=== PATIENT | male | born 1950 | race Caucasian/White ===

== ENCOUNTER 2018-05-24 17:31 | Emergency (ER) | payer MEDICARE, OTHER ==
[2018-05-24] MEDS ORDERED: NS 0.9% 1000 ML* 1,000 ML IV ONE (18:10)
[2018-05-24] MEDS ORDERED: Morphine VIAL* 4 MG/ML VIAL (1 ml vial) IV ONE (18:10)
[2018-05-24] MEDS ORDERED: Ondansetron INJ* 2 MG/ML VIAL IV ONE (18:10)
--- NOTE | 2018-05-24 18:14 | ED ---
GI/ HPI - HPI Summary HPI Summary: 67 year old male with history of cirrhosis and an umbilical hernia presents with severe abdominal pain for 1 day. Patient states his hernia causes him intermittent abdominal pain that is typically relieved with lying but today his pain was not relieved with rest and was more severe and worsening. States his pain is localized to his hernia and does not radiate anywhere. Patient has endorses mild nausea without vomiting and some diarrhea. Denies CP, SOB, back pain, headache, and numbness. Patient rates his pain as a 9/10. Patient has a history of cirrhosis and low platelet count. Describes the pain as "sharp." - History of Current Complaint Chief Complaint: EDAbdPain Time Seen by Provider: 05/24/18 17:47 Stated Complaint: ABD PAIN/NAUSEA Hx Obtained From: Patient, Family/Interactive Media Marketing Director Onset/Duration: Started Days Ago Timing: Intermittent Severity: Severe Current Severity: Severe Pain Intensity: 7 Location of Pain: Umbilical Pain Characteristics: Sharp Associated Signs and Symptoms: Positive: Nausea, Diarrhea, Chills Aggravating Factor(s): Straining, Movement, Sitting, Walking/Exertion Alleviating Factor(s): Nothing - Risk Factors GI Bleed Risk Factor(s): Liver Disease - Additional Pertinent History Primary Care Physician: ELSA - Allergy/Home Medications Allergies/Adverse Reactions: Allergies Allergy/AdvReac Type Severity Reaction Status Date / Time aspirin Allergy Unknown Verified 05/24/18 17:37 Reaction Details PMH/Surg Hx/FS Hx/Imm Hx Previously Healthy: No Endocrine/Hematology History: Denies: Hx Diabetes Cardiovascular History: Denies: Hx Hypertension GI History: Reports: Hx Cirrhosis - Recent diagnosis, Other GI Disorders - umbilical hernia Sensory History: Reports: Hx Hearing Problem - INAJA - Surgical History Surgery Procedure, Year, and Place: [place] Infectious Disease History: No Infectious Disease History: Denies: Traveled Outside the [place] in Last 30 Days - Family History Known Family History: Positive: Hypertension - Social History Alcohol Use: None Alcohol Amount: 1 glass of wine with dinner Substance Use Type: Reports: None Smoking Status (MU): Former Smoker Review of Systems Negative: Fever Negative: Chest Pain Negative: Shortness Of Breath Positive: Abdominal Pain, Diarrhea, Nausea. Negative: Vomiting Negative: dysuria All Other Systems Reviewed And Are Negative: Yes Physical Exam Triage Information Reviewed: Yes Vital Signs On Initial Exam: Initial Vitals Temp Pulse Resp BP Pulse Ox 97.3 F 85 16 133/71 100 05/24/18 17:33 05/24/18 17:33 05/24/18 17:33 05/24/18 17:33 05/24/18 17:33 Vital Signs Reviewed: Yes Appearance: Positive: Well-Appearing Skin: Positive: Warm, Dry Head/Face: Positive: Normal Head/Face Inspection Eyes: Positive: Normal, Conjunctiva Clear ENT: Positive: Pharynx normal Respiratory/Lung Sounds: Positive: Clear to Auscultation, Breath Sounds Present Cardiovascular: Positive: Normal, RRR Abdomen Description: Positive: Soft, Other: - umbilical hernia present, tenderness over umblicial hernia Bowel Sounds: Positive: Present Musculoskeletal: Positive: Normal Neurological: Positive: Normal Psychiatric: Positive: Normal Diagnostics - Vital Signs Vital Signs Temp Pulse Resp BP Pulse Ox 05/24/18 17:33 97.3 F 85 16 133/71 100 - Laboratory Result Diagrams: 05/24/18 18:32 05/24/18 18:32 Lab Statement: Any lab studies that have been ordered have been reviewed, and results considered in the medical decision making process. Re-Evaluation - Re-Evaluation First Eval Re-Evaluation Time: 19:19 Change: Improved Comment: umbilical hernia no longer present GIGU Course/Dx - Course Course Of Treatment: 67 year old male with a history of cirrhosis, low platelet count, and an umbilical hernia presents with worsening abdominal pain. Rates the pain as 9/10 and states it is localized to his hernia without radiation. States the pain is associated with nausea without vomiting. on exam has tenderness over umbilical hernia. in not red or warm to touch. Dr. Augustin saw the patient and was able to reduce the hernia. The patient experienced complete relief of symptoms. labs similiar to previous. Abdominal binder was placed and patient advised to keep it on. Patient discharged with instructions not to lift , to avoid strenuous activity, and to follow up with surgery. - Diagnoses Differential Diagnoses - Male: Gastroenteritis (Viral), Incarcerated Hernia, Urinary Tract Infection Provider Diagnoses: Hernia, umbilical Discharge - Sign-Out/Discharge Documenting (check all that apply): Patient Departure - Discharge Plan Condition: Good Disposition: HOME Patient Education Materials: Umbilical Hernia (ED) Referrals: Shalonda Winters MD [Primary Care Provider] - Dawson Augustin MD [Medical Doctor] - Additional Instructions: Do not lift heavy items. Avoid strenuous activity. Keep abdominal binder in place. Follow up with surgery. Return to ER with new or worsening symptoms. - Billing Disposition and Condition Condition: GOOD Disposition: Home
[2018-05-24 18:47] LABS: Hematocrit 30 % (42-52); Hemoglobin 10.8 g/dl (14.0-18.0); Mean Corpuscular HGB Conc 35 g/dl (31-36); Mean Corpuscular Hemoglobin 35 pg (27-31); Mean Corpuscular Volume 98 fL (80-94); Platelet Count 29 10^3/ul (150-450); Red Blood Count 3.11 10^6/ul (4.00-5.40); Red Cell Distribution Width 15 % (10.5-15); White Blood Count 8.1 10^3/ul (3.5-10.8)
[2018-05-24 18:54] LABS: INR 1.39 (0.77-1.02)
[2018-05-24 19:06] LABS: ABS Basophils 0 10^3/ul (0-0.2); ABS Eosinophils 0 10^3/ul (0-0.6); ABS Lymphocytes 0.3 10^3/ul (1.0-4.8); ABS Monocytes 0.3 10^3/ul (0-0.8); ABS Neutrophils 7.4 10^3/ul (1.5-7.7); ABS Nucleated RBC 0 10^3/ul; Eosinophil % 0.1 %; Lymphocyte % 4.2 %; Nucleated Red Blood Cells % 0
[2018-05-24 19:24] VITALS: BP 98/64
--- NOTE | 2018-05-25 03:04 | CONS ---
CC: Dr. Shalonda Winters; Dr. Bubba Field.* CONSULTATION REPORT: DATE OF CONSULT: 05/24/18 - EMERGENCY DEPT HISTORY OF PRESENT ILLNESS: The patient is known to me from previous office visits for umbilical hernia. We had considered umbilical hernia repair at the previous time; however, he was seen in consultation by Dr. Field who felt that his degree of cirrhosis created a high risk of morbidity and mortality with an elective surgery and therefore he has been managed nonoperatively. He comes to the emergency room now with lot of pain at the hernia site. He has not been throwing up. This has been just over a short period of time. PHYSICAL EXAM: On examination, he has approximately a 3-cm umbilical hernia, which is tender and not easily reducible. He is given some pain medicine and then with manipulation and modest amount of pushing, I am able to get it to pop right in and reduce the defect. It is just about a centimeter across. At that point, the hernia stays in nicely and he is feeling quite a bit better. I discussed it with him and with his , and again I will defer to the medical doctors as to whether he can tolerate surgery for his umbilical hernia. It is now reduced and I recommend he wear an abdominal binder and that may be able to keep it reduced and I am happy to see him back in the further should the need arise. [id number]/[facility] #: [id number]
== END 2018-05-24 20:05 | disposition home or self-care (01) ==
LOC: ED 17:31
DX: K42.9 Umbilical hernia without obstruction or gangrene (principal); Z87.891 Personal history of nicotine dependence
CPT/HCPCS: 36415; 80053; 82150; 83605; 83690; 85025; 85610; 85730; 86140; 96361; 96374; 96375; 99282; J2270; J2405

== ENCOUNTER 2020-10-06 17:17 | Inpatient (IN) ==
[2020-10-06 20:59] LABS: ABS Eosinophils 0.1 10^3/ul (0-0.6); ABS Lymphocytes 0.4 10^3/ul (1.0-4.8); ABS Monocytes 0.9 10^3/ul (0-0.8); ABS Neutrophils 7.6 10^3/ul (1.5-7.7); Eosinophil % 0.7 %; Hematocrit 23 % (42-52); Hemoglobin 8.5 g/dL (14.0-18.0); Lymphocyte % 4.1 %; Mean Corpuscular HGB Conc 36 g/dL (31-36); Mean Corpuscular Hemoglobin 36 pg (27-31); Mean Corpuscular Volume 98 fL (80-94); Mean Platelet Volume 7.7 fL (7.4-10.4); Platelet Count 75 10^3/uL (150-450); Red Blood Count 2.39 10^6 /uL (4.18-5.48); Red Cell Distribution Width 16 % (10-15)
[2020-10-06 21:03] LABS: INR 1.81 (0.82-1.09)
[2020-10-06 21:06] LABS: Albumin 2.9 g/dL (3.2-5.2); Albumin/Globulin Ratio 0.7 (1-3); C Reactive Protein 85.75 mg/L (<8.01); Calcium 8.4 mg/dL (8.6-10.3); EGFR African American 35.6 (>60); EGFR Non-African American 29.4 (>60); Globulin 4.4 g/dL (2-4); Magnesium 2.1 mg/dL (1.9-2.7); Potassium 4.2 mmol/L (3.5-5.0); Total Bilirubin 4.9 mg/dL (0.2-1.0); Total Protein 7.3 g/dL (6.4-8.9)
[2020-10-07] MEDS ORDERED: Dextrose 50% Syringe 50 ml 25 GM/50 ML SYRINGE IV PUSH PRN
[2020-10-07] MEDS ORDERED: cefTRIAXone 2 GM ADDV.VIAL 2 GM in NS 0.9% 100 ml BAG 100 ML IV ONE
[2020-10-07] MEDS: cefTRIAXone 2 GM ADDV.VIAL 2 GM in NS 0.9% 100 ml BAG 100 ML IV SCH (01:11)
[2020-10-07] MEDS: NS 0.9% 1000 ml BAG 1,000 ML IV SCH ×3 (01:11→21:47)
[2020-10-07 06:11] LABS: ABS Eosinophils 0.1 10^3/ul (0-0.6); ABS Lymphocytes 0.5 10^3/ul (1.0-4.8); ABS Monocytes 0.8 10^3/ul (0-0.8); ABS Neutrophils 5.5 10^3/ul (1.5-7.7); Eosinophil % 1.7 %; Hematocrit 20 % (42-52); Lymphocyte % 7.3 %; Mean Corpuscular HGB Conc 36 g/dL (31-36); Mean Corpuscular Hemoglobin 35 pg (27-31); Mean Corpuscular Volume 98 fL (80-94); Mean Platelet Volume 7.4 fL (7.4-10.4); Platelet Count 58 10^3/uL (150-450); Red Blood Count 1.98 10^6 /uL (4.18-5.48); Red Cell Distribution Width 16 % (10-15)
[2020-10-07 06:25] LABS: Albumin 2.5 g/dL (3.2-5.2); Calcium 7.8 mg/dL (8.6-10.3); Indirect Bilirubin 1.6 mg/dL (0.3-1.0); Potassium 4.7 mmol/L (3.5-5.0); Total Bilirubin 3.6 mg/dL (0.2-1.0)
[2020-10-07 06:31] LABS: Albumin/Globulin Ratio 0.7 (1-3); EGFR African American 38.4 (>60); EGFR Non-African American 31.7 (>60); Globulin 3.6 g/dL (2-4); Total Protein 6.1 g/dL (6.4-8.9)
[2020-10-08] MEDS: cefTRIAXone 2 GM ADDV.VIAL 2 GM in NS 0.9% 100 ml BAG 100 ML IV SCH (00:28)
[2020-10-08 06:19] LABS: ABS Basophils 0.1 10^3/ul (0-0.2); ABS Eosinophils 0.2 10^3/ul (0-0.6); ABS Lymphocytes 0.5 10^3/ul (1.0-4.8); ABS Neutrophils 9.4 10^3/ul (1.5-7.7); Eosinophil % 1.6 %; Hematocrit 20 % (42-52); Hemoglobin 7.1 g/dL (14.0-18.0); Lymphocyte % 4.1 %; Mean Corpuscular HGB Conc 35 g/dL (31-36); Mean Corpuscular Hemoglobin 35 pg (27-31); Mean Corpuscular Volume 98 fL (80-94); Mean Platelet Volume 7.4 fL (7.4-10.4); Platelet Count 101 10^3/uL (150-450); Red Blood Count 2.06 10^6 /uL (4.18-5.48); Red Cell Distribution Width 16 % (10-15); White Blood Count 11.1 10^3/uL (3.5-10.8)
[2020-10-08 06:31] LABS: Albumin 2.4 g/dL (3.2-5.2); Albumin/Globulin Ratio 0.7 (1-3); Calcium 7.7 mg/dL (8.6-10.3); EGFR African American 40.6 (>60); EGFR Non-African American 33.6 (>60); Globulin 3.6 g/dL (2-4); Magnesium 1.9 mg/dL (1.9-2.7); Potassium 4.3 mmol/L (3.5-5.0); Total Bilirubin 3.2 mg/dL (0.2-1.0)
[2020-10-08] MEDS: NS 0.9% 1000 ml BAG 1,000 ML IV SCH ×2 (08:19→22:57)
[2020-10-08 12:41] LABS: Body Fluid Source Peritonial Fluid
[2020-10-08 13:14] LABS: Body Fluid Mono 40 %; Body Fluid Other Cells 9
[2020-10-09] MEDS: cefTRIAXone 2 GM ADDV.VIAL 2 GM in NS 0.9% 100 ml BAG 100 ML IV SCH (00:35)
[2020-10-09 05:01] LABS: ABS Basophils 0.1 10^3/ul (0-0.2); ABS Lymphocytes 0.3 10^3/ul (1.0-4.8); ABS Neutrophils 11.9 10^3/ul (1.5-7.7); Eosinophil % 0.4 %; Hematocrit 23 % (42-52); Hemoglobin 7.8 g/dL (14.0-18.0); Lymphocyte % 2.6 %; Mean Corpuscular HGB Conc 35 g/dL (31-36); Mean Corpuscular Hemoglobin 34 pg (27-31); Mean Corpuscular Volume 99 fL (80-94); Mean Platelet Volume 6.8 fL (7.4-10.4); Nucleated Red Blood Cells % 0.1; Platelet Count 115 10^3/uL (150-450); Red Blood Count 2.29 10^6 /uL (4.18-5.48); Red Cell Distribution Width 16 % (10-15); White Blood Count 13.4 10^3/uL (3.5-10.8)
[2020-10-09 05:18] LABS: Albumin 2.4 g/dL (3.2-5.2); Albumin/Globulin Ratio 0.6 (1-3); EGFR African American 40.9 (>60); EGFR Non-African American 33.8 (>60); Globulin 3.9 g/dL (2-4); Potassium 3.8 mmol/L (3.5-5.0); Total Bilirubin 3.8 mg/dL (0.2-1.0); Total Protein 6.3 g/dL (6.4-8.9)
[2020-10-09] MEDS: Ondansetron 4 mg VIAL 2 MG/ML 2 ml VIAL IV PRN (08:03)
[2020-10-09] MEDS ORDERED: NS 0.9% 1000 ml BAG 1,000 ML IV SCH ×2 (09:40→12:49)
[2020-10-09] MEDS: Lactulose 30 ml UDC PO SCH (20:54)
[2020-10-10] MEDS: cefTRIAXone 2 GM ADDV.VIAL 2 GM in NS 0.9% 100 ml BAG 100 ML IV SCH (00:19)
[2020-10-10] MEDS: Lactulose 30 ml UDC PO SCH ×2 (09:32→20:34)
[2020-10-10 14:56] LABS: Albumin, BF 0.6 g/dL; Fluid Type, Albumin PERITONEAL
[2020-10-10] MEDS: Ondansetron 4 mg VIAL 2 MG/ML 2 ml VIAL IV PRN (17:01)
[2020-10-10] MEDS: NS 0.9% 1000 ml BAG 1,000 ML IV SCH (17:09)
[2020-10-11] MEDS: cefTRIAXone 2 GM ADDV.VIAL 2 GM in NS 0.9% 100 ml BAG 100 ML IV SCH (00:57)
[2020-10-11] MEDS: NS 0.9% 1000 ml BAG 1,000 ML IV SCH ×2 (04:38→15:44)
[2020-10-11] MEDS: Lactulose 30 ml UDC PO SCH ×2 (10:03→20:21)
[2020-10-11] MEDS: Ondansetron 4 mg VIAL 2 MG/ML 2 ml VIAL IV PRN (11:57)
[2020-10-11] MEDS ORDERED: Ondansetron 4 mg VIAL 2 MG/ML 2 ml VIAL IV ONE (16:32)
[2020-10-12] MEDS: cefTRIAXone 2 GM ADDV.VIAL 2 GM in NS 0.9% 100 ml BAG 100 ML IV SCH (01:40)
[2020-10-12] MEDS: NS 0.9% 1000 ml BAG 1,000 ML IV SCH ×3 (01:40→21:50)
[2020-10-12] MEDS: Lactulose 30 ml UDC PO SCH ×2 (09:38→20:47)
[2020-10-12 13:03] LABS: Fluid Type, Glucose Peritoneal Fluid; Fluid Type, Protein, Total Peritoneal Fluid; Glucose, BF 167 mg/dL; Lactate Dehydrogenase, BF 54 U/L
[2020-10-13] MEDS: cefTRIAXone 2 GM ADDV.VIAL 2 GM in NS 0.9% 100 ml BAG 100 ML IV SCH (01:08)
[2020-10-13] MEDS: Lactulose 30 ml UDC PO SCH (09:27)
[2020-10-13 10:32] VITALS: BP 103/47
== END 2020-10-13 09:00 | disposition home or self-care (01) | DRG 388 ==
LOC: MEDTELE 17:17 → ED 17:17 → MEDTELE 10-07 00:27
PROVIDERS: ADMIT Hospitalist; ATTEND Hospitalist